=== PATIENT | female | born 1965 | race Two or more races ===

== ENCOUNTER 2024-10-14 12:24 | Inpatient (IN) | payer OTHER ==
[~2024-10-14] VITALS: Ht 157.5 cm; Wt 81.6 kg
[2024-10-14] MEDS ORDERED: ZESTRIL20 MG (12:32)
[2024-10-14] MEDS ORDERED: NEURONTIN300 MG (12:32)
[2024-10-14] MEDS ORDERED: FARXIGA10 MG (12:32)
[2024-10-14] MEDS ORDERED: HORIZANT300 MG (12:33)
[2024-10-14] MEDS ORDERED: ATORVASTATIN CA10 MG (12:33)
[2024-10-14] MEDS ORDERED: METFORMIN HCL500 M3 (12:33)
[2024-10-14] MEDS ORDERED: KETOROLAC TROMETHAMINE 60 MG VIAL IM ONE (13:00)
[2024-10-14 13:35] LABS: BASO % 0.3 % (0.1-1.2); EOS # 0.03 (0.04-0.54); EOS % 0.3 % (0.7-7.0); LYMPH # 2.86 (1.18-3.74); LYMPH % 27.7 % (19.3-53.1); MEAN PLATELET VOLUME 10.40 fl (9.4-12.4); MONO # 0.85 (0.24-0.82); MONO % 8.2 % (4.7-12.5); NEUT # 6.53 (1.56-6.13); NEUT % 63.1 % (34.0-71.1); RED CELL DISTRIBUTION WIDTH 12.3 % (11.6-14.4)
[2024-10-14 13:52] LABS: URINE APPEARANCE Clear; URINE BILIRRUBIN Negative (NEGATIVE); URINE BLOOD Negative; URINE COLOR Yellow; URINE LEUKOCYTE Negative; URINE NITRATE Negative; URINE PROTEIN Negative (NEGATIVE); URINE UROBILINOGEN 0.2 E.U./dl
[2024-10-14 13:55] LABS: URINE GLUCOSE >=1000 MG/DL (NEGATIVE); URINE KETONE 80 (NEGATIVE)
[2024-10-14 13:57] LABS: URINE BACTERIA 101.5 uL (0.0-1933); URINE CAST 0.14 uL (0.0-1.40); URINE EPITHELIAL CELLS 5.6 uL (0.0-38.8); URINE RBC 0.2 uL (0.0-20.8); URINE WBC 22.9 uL (0.0-23.2)
[2024-10-14 14:06] LABS: ALT/SGPT 26.0 U/L (12-78); AST/SGOT 13.0 U/L (15-37); BILIRUBIN TOTAL 0.59 mg/dL (0.3-1.2); BUN CREA RATIO 20.0 (7.0-25.0); CREATININE SERUM 0.74 mg/dL (0.55-1.02); GFR 80.61; GLOBULINA 4.1 G/DL (2.4-3.5); GLUCOSE FASTING 197.0 mg/dL (65-100); OSMOLALITY SERUM 295.0 MOSM/KG (275-295)
[2024-10-14] MEDS ORDERED: 0.9 % SODIUM CHLORIDE 1,000 ML IV SCH (14:15)
[2024-10-14] MEDS ORDERED: INSULIN LISPRO 1,000 UNIT/10 ML UNITS SUBCUTANEO PRN (16:30)
[2024-10-14] MEDS ORDERED: DEXTROSE 50 % IN WATER 0.5 G/ML VIAL IV PRN (16:30)
[2024-10-14] MEDS ORDERED: KETOROLAC TROMETHAMINE 30 MG VIAL IU PRN (16:30)
[2024-10-14] MEDS ORDERED: ONDANSETRON HCL 4 MG in 0.9 % SODIUM CHLORIDE 50 ML IV PRN (16:30)
[2024-10-14] MEDS ORDERED: ACETAMINOPHEN 325 MG TABLET PO PRN (16:30)
[2024-10-14] MEDS ORDERED: PIPERACILLIN/TAZOBACTAM SODIUM 3.375 GM in 0.9 % SODIUM CHLORIDE 100 ML IV SCH (18:00)
[2024-10-14 19:05] VITALS: BP 130/70; O2SAT 99
[2024-10-14 19:10] VITALS: BP 130/70
[2024-10-14 19:24] LABS: COVID-19 AG NEGATIVE (NEGATIVE)
[2024-10-14 19:40] LABS: INR 1.0
[2024-10-14 20:50] VITALS: BP 117/75; O2SAT 96
[2024-10-14] MEDS ORDERED: GABAPENTIN 100 MG CAPSULE PO SCH (21:00)
[2024-10-15 01:35] VITALS: BP 112/58; O2SAT 98
[2024-10-15 01:36] VITALS: BP 112/58; O2SAT 98
[2024-10-15 08:00] VITALS: BP 128/74; O2SAT 97
[2024-10-15] MEDS ORDERED: FAMOTIDINE/PF 20 MG/2 ML VIAL IV SCH (09:00)
[2024-10-15] MEDS ORDERED: PATIENTS OWN MEDICATION (MEDICAMENTO EN PISO) PO SCH (09:00)
[2024-10-15] MEDS ORDERED: LISINOPRIL 20 MG TABLET PO SCH (09:00)
[2024-10-15] MEDS ORDERED: DIPHENHYDRAMINE HCL 50 MG/ML VIAL 1ML IV ONE (11:15)
[2024-10-15] MEDS ORDERED: CEFAZOLIN SODIUM 1,000 MG VIAL IV ONE (11:15)
[2024-10-15] MEDS ORDERED: FAMOTIDINE/PF 20 MG/2 ML VIAL IV ONE (11:15)
[2024-10-15] MEDS ORDERED: MORPHINE SULFATE 4 MG/ML VIAL IV ONE (13:40)
[2024-10-15 16:42] VITALS: BP 118/71; O2SAT 96
[2024-10-15] MEDS ORDERED: ATORVASTATIN CALCIUM 10 MG TABLET PO SCH (17:00)
[2024-10-16 00:29] VITALS: BP 126/73; O2SAT 97
[2024-10-16 08:00] VITALS: BP 130/74; O2SAT 99
== END 2024-10-16 15:05 | disposition home or self-care (01) | DRG 337 ==
LOC: ER 12:24 → SURH 16:28 → SURG 16:28 → SEC-K 10-15 15:52 → SURG 10-15 15:53
PROVIDERS: General Practice; Student in an Organized Health Care Education/Training Program; ADMIT Internal Medicine; ATTEND Internal Medicine
PROC: BW21ZZZ Computerized Tomography (CT Scan) of Abdomen and Pelvis (ICD-10-PCS; 2024-10-14)
PROC: 0DNW4ZZ Release Peritoneum, Percutaneous Endoscopic Approach (ICD-10-PCS; 2024-10-15)
PROC: 0DTJ4ZZ Resection of Appendix, Percutaneous Endoscopic Approach (ICD-10-PCS; principal; 2024-10-15 12:30)
DX: K35.30 Acute appendicitis with localized peritonitis, without perforation or gangrene (principal); N99.4 Postprocedural pelvic peritoneal adhesions; N73.6 Female pelvic peritoneal adhesions (postinfective); I10 Essential (primary) hypertension; E11.9 Type 2 diabetes mellitus without complications; Z79.4 Long term (current) use of insulin